=== PATIENT | male | born 1960 | race Caucasian/White ===

== ENCOUNTER → 2016-09-17 | Outpatient (CLI) | payer MEDICARE ==
[~2016-09-17] MED LIST: ALBU8I INH; ALBUAER3 INH; AMLO10 PO; ASPI1TAB69 PO; BUME1TAB28 PO; BUME2TAB PO; CARD180C5 PO; CART240C PO; CARV25TA PO; CEFD300C PO; CLIN1CAP5 PO; CLON.2 PO; CLON0.1T PO; DOXY100T PO; ECOT325T PO; EXEN5PEN SQ; KLOR20TA6 PO; LANTUS2P SQ; LANTUSP SQ; LORTA5 PO; LOSA100T PO; METF500 PO; METF500T PO; OMEP20TA PO; PERC5TAB12 PO; POTA10CA PO; RHINSUS; WARF-20 PO
[2016-09-17 16:12] LABS: AUTOMATED NEUTROPHIL # 8.2 TH/MM3 (1.8-7.7); BASOPHIL # 0.1 TH/MM3 (0-0.2); BASOPHIL % 0.8 % (0.0-2.0); EOSINOPHIL # 0.5 TH/MM3 (0-0.4); EOSINOPHIL % 4.1 % (0.0-4.0); HEMATOCRIT 32.2 % (39.0-51.0); HEMO FLAGS DIFF FINAL; LYMPH % 20.7 % (9.0-44.0); LYMPHOCYTE # 2.6 TH/MM3 (1.0-4.8); MEAN CELL VOLUME 84.1 FL (80.0-100.0); MEAN CORPUSCULAR HEMOGLOBIN 27.2 PG (27.0-34.0); MEAN CORPUSCULAR HGB CONC 32.3 % (32.0-36.0); NEUT % 66.4 % (16.0-70.0); PLATELET COUNT 299 TH/MM3 (150-450); RED BLOOD COUNT 3.83 MIL/MM3 (4.50-5.90); RED CELL DISTRIBUTION WIDTH 16.7 % (11.6-17.2); WHITE BLOOD COUNT 12.4 TH/MM3 (4.0-11.0)
[2016-09-17 16:29] LABS: ANION GAP 7 MEQ/L (5-15); BICARBONATE 26.3 MEQ/L (21.0-32.0); BLOOD UREA NITROGEN 24 MG/DL (7-18); CHLORIDE 106 MEQ/L (98-107); GLOMERULAR FILTRATION RATE 29 ML/MIN (>89); POTASSIUM 4.6 MEQ/L (3.5-5.1); SODIUM (NA) 139 MEQ/L (136-145); TRANSFERRIN IRON PROFILE 121 MG/DL (200-360)
== END ==
LOC: PLAB 11:53
PROVIDERS: ATTEND Family Medicine
DX: D50.9 Iron deficiency anemia, unspecified (principal); N18.4 Chronic kidney disease, stage 4 (severe)
CPT/HCPCS: 80048; 83540; 83550; 85025

== ENCOUNTER 2016-10-21 18:18 | Emergency (ER) | payer MEDICARE, OTHER ==
[~2016-10-21] VITALS: Ht 167.6 cm; Wt 154.0 kg
[~2016-10-21 18:18] MED LIST changes: -ALBUAER3 INH; -ASPI1TAB69 PO; -BUME1TAB28 PO; -CART240C PO; -CLIN1CAP5 PO; -CLON0.1T PO; -LANTUS2P SQ; -METF500T PO; -PERC5TAB12 PO; -POTA10CA PO
[2016-10-21 18:24] VITALS: BP 188/91; PULSE 80; RESP 16; TEMP 98.7; O2SAT 95
[2016-10-21] MEDS ORDERED: CART240C PO (19:25)
[2016-10-21] MEDS ORDERED: ASPI1TAB69 PO (19:25)
[2016-10-21] MEDS ORDERED: ALBUAER3 INH (19:25)
[2016-10-21] MEDS ORDERED: LOSA100T PO (19:25)
[2016-10-21] MEDS ORDERED: POTA10CA PO (19:25)
[2016-10-21] MEDS ORDERED: BUME1TAB28 PO (19:25)
[2016-10-21] MEDS ORDERED: METF500T PO (19:25)
[2016-10-21] MEDS ORDERED: OMEP20TA PO (19:25)
[2016-10-21] MEDS ORDERED: CARV25TA PO (19:25)
[2016-10-21] MEDS ORDERED: AMLO10 PO (19:25)
[2016-10-21] MEDS ORDERED: CLON0.1T PO (19:25)
[2016-10-21] MEDS ORDERED: LANTUS2P SQ (19:25)
--- NOTE | 2016-10-21 20:13 | PD ---
HPI Chief Complaint: Musculoskeletal Complaint Time Seen by Provider: 20:09 Travel History International Travel<30 days: No Contact w/Intl Traveler<30days: No Traveled to known affect area: No History of Present Illness HPI Patient is a 55-year-old male with a history of IDDM, hypertension, COPD and DVT presenting with left shoulder pain. It is mostly anterior. Present for 4 weeks. Denies trauma or injury. Pain is worse with movement, especially flexion and abduction. Over the last several days it is worsened and he is unable sleep on the affected side. Ibuprofen is not helping. He feels like the pain is radiating now into his upper arm area feels tight which he states is similar to when he had a DVT of the right upper extremity years prior. Currently on aspirin, no anticoagulants. He states that the pain does radiate into the pectoral muscle on the left. He denies shortness of breath, cough, wheezing, orthopnea, PABLO. Denies any pain in his neck. He denies any weakness or paresthesias. Patient adds that he has had some redness and discharge the pretibial surfaces bilaterally. He is had chronic cellulitis off and on. Currently present for 5-7 days. He denies pain or swelling. He denies fever and chills. PFSH Past Medical History Hx Anticoagulant Therapy: Yes (ASA) Arthritis: Yes Asthma: No Autoimmune Disease: No Blood Disorders: No Heart Rhythm Problems: No Cancer: No Cardiovascular Problems: Yes High Cholesterol: No Chest Pain: Yes Congestive Heart Failure: No COPD: Yes Cerebrovascular Accident: No Diabetes: Yes (INSULIN AND PILLS) Patient Takes Glucophage: Yes Diminished Hearing: No Endocrine: Yes Gastrointestinal Disorders: Yes GERD: Yes Genitourinary: Yes Headaches: Yes Hiatal Hernia: No Hypertension: Yes Immune Disorder: No Implanted Vascular Access Dvce: Yes Kidney Stones: Yes (WITH LITHOTRIPSY) Musculoskeletal: Yes Neurologic: Yes Psychiatric: No Reproductive: No Migraines: Yes Renal Failure: Yes (CRI) Seizures: No Sleep Apnea: No Thyroid Disease: No Ulcer: No Past Surgical History Abdominal Surgery: Yes (gall bladder ) AICD: No Arteriovenous Shunt: No Cardiac Surgery: No Cholecystectomy: Yes Ear Surgery: No Endocrine Surgery: No Eye Surgery: Yes (BILATERAL CATARACT REMOVAL WITH LENS IMPLANTS) Genitourinary Surgery: Yes (KIDNEY STONE REMOVAL, LITHOTRIPSY) Insulin Pump: No Joint Replacement: No Neurologic Surgery: No Oral Surgery: No Pacemaker: No Thoracic Surgery: No Other Surgery: Yes (COLONOSCOPY) Social History Alcohol Use: No Tobacco Use: No Substance Use: No Allergies-Medications (Allergen,Severity, Reaction): Coded Allergies: Hytrin (Verified Allergy, Severe, HIVES, 10/21/16) Lexapro (Verified Allergy, Severe, HIVES, 10/21/16) Lipitor (Verified Allergy, Severe, UNKNOWN, 10/21/16) Lisinopril (Verified Allergy, Severe, Rash, 10/21/16) Lovastatin (Verified Allergy, Severe, UNKNOWN, 10/21/16) Nitroglycerin (Verified Allergy, Severe, evere headache, 10/21/16) Penicillin (Verified Allergy, Severe, hives, 10/21/16) Pravachol (Verified Allergy, Severe, HIVES, CONFUSION, 10/21/16) Serzone (Verified Allergy, Severe, SHAIKH, 10/21/16) Vicodin (Verified Allergy, Severe, SHAIKH, 10/21/16) Wellbutrin (Verified Allergy, Severe, ABDOMINAL CRAMPS, 10/21/16) Levofloxacin (Verified Allergy, Unknown, Hallucinations, 10/21/16) Reported Meds & Prescriptions Reported Meds & Active Scripts Active Clindamycin (Clindamycin HCl) 150 Mg Cap 300 Mg PO Q6H 7 Days Percocet (Oxycodone-Acetaminophen) 5-325 mg Tab 1 Tab PO Q6H PRN Reported Aspirin 81 Mg Tabdr 81 Mg PO DAILY Potassium Chloride ER (Potassium Chloride) 10 Meq Cap 10 Meq PO DAILY Omeprazole 20 Mg Tab 20 Mg PO DAILY Metformin (Metformin HCl) 500 Mg Tab 500 Mg PO BIDPC With meals Lantus Inj (Insulin Glargine) 1,000 Unit/10 Ml Vial 40 Units SQ HS Losartan (Losartan Potassium) 100 Mg Tab 100 Mg PO DAILY Carvedilol 25 Mg Tab 25 Mg PO BID Clonidine (Clonidine HCl) 0.1 Mg Tab 0.1 Mg PO TID Cartia Xt (Diltiazem ER 24 HR) 240 Mg Caper 240 Mg PO DAILY Bumex (Bumetanide) 2 Mg Tab 2 Mg PO BID Norvasc (Amlodipine Besylate) 10 Mg Tab 10 Mg PO DAILY Proair Hfa 8.5 GM Inh (Albuterol Sulfate) 90 Mcg/Act Aer 1 Puff INH Q4H PRN 108 mcg/actuation Review of Systems Except as stated in HPI: all other systems reviewed are Neg Physical Exam Narrative GENERAL: Well-developed and well-nourished adult male in no acute distress. SKIN: Bilateral pretibial surfaces have significant scarring and chronic discoloration. There is a small amount of area of bilateral pretibial surface does appear cellulitic. No induration, fluctuance or streaking. Warm and dry. Good turgor without tenting. HEAD: Normocephalic and atraumatic. EYES: PERRL bilaterally, 5mm. EOMI bilaterally. No injection or icterus present. No proptosis. Lids without edema or erythema. NECK: Supple, no midline tenderness, crepitus or step-offs. Trachea midline, no JVD. No cervical or facial lymphadenopathy. CARDIOVASCULAR: Regular rate and rhythm without murmurs, rubs, clicks or gallops. Radial and dorsalis pedis pulses 2+ bilaterally. Trace bilateral pedal edema, chronic per patient. Bilateral Homans sign. RESPIRATORY: Clear to auscultation bilaterally with symmetrical rise and fall, no distress or use of accessory muscles. MUSCULOSKELETAL: Left shoulder is grossly unremarkable. GC tender to palpation , mostly anteriorly and laterally. No edema or discoloration. Pain is mostly in the left acromioclavicular region. Positive impingement test the left shoulder. As a pain with palpation of the left pectoral muscle and anterior left-sided chest wall. Pain with squeezing of the left upper arm which has no edema or discoloration suggestive of DVT. It does not appear larger than the right. Patient freely moving all four extremities spontaneously. Extremities without clubbing or cyanosis. No obvious deformities. NEUROLOGIC: CN II-XII grossly intact. Awake and alert. Strength 5/5 bilateral shoulder flexion, shoulder extension, shoulder abduction, elbow flexion and elbow extension. Bilateral biceps, triceps and brachial radialis DTRs 2+. Negative bilateral Abbott sign. Strength and sensation intact bilateral radial , median, and ulnar nerve distributions. Normal speech. PSYCHIATRIC: Appropriate mood and affect; insight and judgment normal. Data Data Last Documented VS Vital Signs Date Time Temp Pulse Resp B/P Pulse Ox O2 Delivery O2 Flow Rate FiO2 10/21/16 23:18 97 Room Air 10/21/16 23:18 20 10/21/16 18:24 98.7 80 188/91 Orders Shoulder, Complete (>2vws) (10/21/16 20:04) Us Arm Venous Doppler (10/21/16 ) Electrocardiogram (10/21/16 20:04) Ckmb (Isoenzyme) Profile (10/21/16 20:04) Complete Blood Count With Diff (10/21/16 20:04) Comprehensive Metabolic Panel (10/21/16 20:04) Prothrombin Time / Inr (Pt) (10/21/16 20:04) Act Partial Throm Time (Ptt) (10/21/16 20:04) Troponin I (10/21/16 20:04) Chest, Single Ap (10/21/16 20:04) Ecg Monitoring (10/21/16 20:04) Bilateral Bp Monitoring (10/21/16 20:04) Iv Access Insert/Monitor (10/21/16 20:04) Oximetry (10/21/16 20:04) Oxygen Administration (10/21/16 20:04) Sodium Chloride 0.9% Flush (Ns Flush) (10/21/16 20:15) Morphine Inj (Morphine Inj) (10/21/16 20:15) Ondansetron Inj (Zofran Inj) (10/21/16 20:15) Clindamycin Inj (Cleocin Inj) (10/21/16 21:30) D-Dimer (10/21/16 22:28) Morphine Inj (Morphine Inj) (10/21/16 22:30) Aspirin Chew (Aspirin Chew) (10/22/16 00:00) Labs Laboratory Tests Test 10/21/16 20:30 White Blood Count 12.5 TH/MM3 Red Blood Count 3.72 MIL/MM3 Hemoglobin 10.3 GM/DL Hematocrit 30.8 % Mean Corpuscular Volume 83.0 FL Mean Corpuscular Hemoglobin 27.8 PG Mean Corpuscular Hemoglobin 33.5 % Concent Red Cell Distribution Width 14.5 % Platelet Count 339 TH/MM3 Mean Platelet Volume 6.9 FL Neutrophils (%) (Auto) 75.4 % Lymphocytes (%) (Auto) 13.6 % Monocytes (%) (Auto) 8.2 % Eosinophils (%) (Auto) 2.2 % Basophils (%) (Auto) 0.6 % Neutrophils # (Auto) 9.4 TH/MM3 Lymphocytes # (Auto) 1.7 TH/MM3 Monocytes # (Auto) 1.0 TH/MM3 Eosinophils # (Auto) 0.3 TH/MM3 Basophils # (Auto) 0.1 TH/MM3 CBC Comment DIFF FINAL Differential Comment Prothrombin Time 10.2 SEC Prothromb Time International 0.9 RATIO Ratio Activated Partial 30.0 SEC Thromboplast Time D-Dimer Quantitative (PE/DVT) 0.91 MG/L FEU Sodium Level 140 MEQ/L Potassium Level 4.9 MEQ/L Chloride Level 105 MEQ/L Carbon Dioxide Level 24.7 MEQ/L Anion Gap 10 MEQ/L Blood Urea Nitrogen 22 MG/DL Creatinine 2.20 MG/DL Estimat Glomerular Filtration 31 ML/MIN Rate Random Glucose 112 MG/DL Calcium Level 8.1 MG/DL Total Bilirubin 0.2 MG/DL Aspartate Amino Transf 6 U/L (AST/SGOT) Alanine Aminotransferase 9 U/L (ALT/SGPT) Alkaline Phosphatase 65 U/L Total Creatine Kinase 81 U/L Troponin I LESS THAN 0.02 NG/ML Total Protein 7.6 GM/DL Albumin 3.2 GM/DL [facility] Medical Decision Making Medical Screen Exam Complete: Yes Emergency Medical Condition: Yes Differential Diagnosis Shoulder impingement syndrome versus subacromial bursitis versus tendinitis versus arthritis versus frozen shoulder versus ACS versus DVT versus cellulitis Narrative Course Patient is a 55-year-old male with history of insulin-dependent diabetes, hypertension, COPD and DVT presenting with left shoulder pain. No injury. Present for 4 weeks. This doesn't appear his orthopedic as he has pain with palpation, movement and evidence of shoulder impingement syndrome. He is neurovascularly intact. Some left pectoral and chest wall tenderness to palpation. He denies central chest pain or pressure and denies current pulmonary symptoms. He does seem to be concerned that he may have a DVT in the arm however as he had DVT in the right arm several years ago and reports that the aching he's not having in his upper arm on the left is similar to what occurred on the right. There is no sign of DVT on exam. He has minor bilateral pedal edema without tenderness which is chronic and slightly improved from usual he states. He is evidence of minimal cellulitis which we will treat with clindamycin. EKG shows sinus rhythm with rate of 74. Left axis deviation and Q waves in the inferior leads. This is all present on previous EKG. QTC is 472 ms which is new. Her shoulder x-ray, chest x-ray, venous Doppler of the left upper extremity and labs. Patient was given morphine for pain. Patient has a leukocytosis of 12.5 with neutrophilia, no bands. He has chronic anemia and renal insufficiency but no acute exacerbations. Troponin less than 0.02. Left upper extremity Doppler is negative for DVT. Left shoulder and chest x- ray unremarkable. Patient achieved very little analgesia with morphine initially. More was given and discussed the patient with Dr. Salazar who recommended a d-dimer and patient would likely be admitted to chest pain center if this is negative. Further workup is positive. Patient was signed out to her for further disposition. Diagnosis Primary Impression: Shoulder pain, left Qualified Code: M25.512 - Acute pain of left shoulder Additional Impression: Cellulitis Qualified Code: L03.119 - Cellulitis of lower extremity, unspecified laterality Scripts Clindamycin 150 Mg [id number] Mg PO Q6H 7 Days Ref 0 Prov:Mecca Salazar MD 10/22/16 Oxycodone-Acetaminophen (Percocet)5-325 mg Tab1 Tab PO Q6H PRN (PAIN) #12 TAB Ref 0 Prov:Mecca Salazar MD 10/22/16 Condition: Stable Senthil Allen III Oct 21, 2016 20:13
[2016-10-21] MEDS ORDERED: SODIUM CHLORIDE 0.9% FLUSH 5 ML FLUSH IVF PRN (20:15)
[2016-10-21] MEDS ORDERED: ONDANSETRON HCL 4 MG/2 ML VIAL IV PUSH ONE (20:15)
[2016-10-21] MEDS ORDERED: MORPHINE SULFATE 8 MG/ML INJ IV PUSH ONE (20:15)
[2016-10-21 21:07] LABS: AUTOMATED NEUTROPHIL # 9.4 TH/MM3 (1.8-7.7); BASOPHIL # 0.1 TH/MM3 (0-0.2); BASOPHIL % 0.6 % (0.0-2.0); EOSINOPHIL # 0.3 TH/MM3 (0-0.4); EOSINOPHIL % 2.2 % (0.0-4.0); HEMATOCRIT 30.8 % (39.0-51.0); HEMO FLAGS DIFF FINAL; LYMPH % 13.6 % (9.0-44.0); LYMPHOCYTE # 1.7 TH/MM3 (1.0-4.8); MEAN CORPUSCULAR HEMOGLOBIN 27.8 PG (27.0-34.0); MEAN CORPUSCULAR HGB CONC 33.5 % (32.0-36.0); MONO % 8.2 % (0.0-8.0); NEUT % 75.4 % (16.0-70.0); PLATELET COUNT 339 TH/MM3 (150-450); RED BLOOD COUNT 3.72 MIL/MM3 (4.50-5.90); RED CELL DISTRIBUTION WIDTH 14.5 % (11.6-17.2); WHITE BLOOD COUNT 12.5 TH/MM3 (4.0-11.0)
[2016-10-21 21:16] LABS: CHLORIDE 105 MEQ/L (98-107); POTASSIUM 4.9 MEQ/L (3.5-5.1); SODIUM (NA) 140 MEQ/L (136-145)
[2016-10-21 21:20] LABS: INTERNATIONAL NORMALIZED RATIO 0.9 RATIO; PROTHROMBIN TIME - PATIENT 10.2 SEC (9.8-11.6)
[2016-10-21 21:21] LABS: ANION GAP 10 MEQ/L (5-15); BICARBONATE 24.7 MEQ/L (21.0-32.0); BLOOD UREA NITROGEN 22 MG/DL (7-18)
[2016-10-21 21:24] LABS: ALT (GPT) 9 U/L (12-78); AST (GOT) 6 U/L (15-37); GLOMERULAR FILTRATION RATE 31 ML/MIN (>89)
[2016-10-21 21:26] LABS: TOTAL BILIRUBIN ADULT 0.2 MG/DL (0.2-1.0)
[2016-10-21 21:27] LABS: ALKALINE PHOSPHATASE 65 U/L (45-117)
[2016-10-21] MEDS ORDERED: CLINDAMYCIN INJ 600 MG in SODIUM CHLORIDE 0.9% INJ 100 ML IV ONE (21:30)
[2016-10-21 21:31] LABS: CREATINE KINASE 81 U/L (39-308)
--- NOTE | 2016-10-21 21:54 | RADHPO ---
EXAM DATE/TIME: 10/21/2016 20:37 [facility] COMPARISON: No previous studies available for comparison. INDICATIONS : Left arm edema and pain. MEDICAL HISTORY : Hypertension. Chronic obstructive pulmonary disease. Gastroesophageal reflux disease. Migraine. Emphy sema. Kidney stones. Diabetes. SURGICAL HISTORY : Cholecystectomy. Lens implants. Lithotripsy. Colonoscopy. ENCOUNTER: Initial ACUITY: 3 days PAIN SCORE: 5/10 LOCATION: Left arm. FINDINGS: There is spontaneous flow documented in the brachial, basilic, cephalic, axillary, and subclavian vei ns. The vessels are compressible and augmentation response is documented. No filling defects are se en. The flow is phasic with respiration. Direction of flow in the jugular vein is caudal. CONCLUSION: Normal examination. Cam Bedolla MD on October 21, 2016 at 21:51 Board Certified Radiologist. This report was verified electronically.
--- NOTE | 2016-10-21 22:14 | RADHPO ---
EXAM DATE/TIME: 10/21/2016 21:22 [facility] COMPARISON: No previous studies available for comparison. INDICATIONS : Chest discomfort. MEDICAL HISTORY : Hypertension. Gastroesophageal reflux disease. Chronic obstructive pulmonary disease. SURGICAL HISTORY : Cholecystectomy. ENCOUNTER: Initial ACUITY: 1 month PAIN SCORE: 7/10 LOCATION: Bilateral chest FINDINGS: A single view of the chest demonstrates the lungs to be symmetrically aerated without evidence of mas s, infiltrate or effusion. The cardiomediastinal contours are unremarkable. Osseous structures are intact. CONCLUSION: No acute disease. Cam Bedolla MD on October 21, 2016 at 22:12 Board Certified Radiologist. This report was verified electronically.
--- NOTE | 2016-10-21 22:16 | RADHPO ---
EXAM DATE/TIME: 10/21/2016 21:24 [facility] COMPARISON: No previous studies available for comparison. INDICATIONS : Left shoulder pain X 4 weeks / no recent injury. MEDICAL HISTORY : Hypertension. Gastroesophageal reflux disease. Diabetes mellitus type II. COPD, Emphysema SURGICAL HISTORY : Cholecystectomy. ENCOUNTER: Initial ACUITY: 1 month PAIN SCORE: 7/10 LOCATION: Left Shoulder FINDINGS: Multiple view examination of the left shoulder demonstrates no evidence of fracture or dislocation. The glenohumeral and acromioclavicular joints are maintained. There is normal range of motion betwee n internal and external rotation. Bony mineralization is normal. CONCLUSION: Normal examination for a patient of this age. Cam Bedolla MD on October 21, 2016 at 22:13 Board Certified Radiologist. This report was verified electronically.
[2016-10-21] MEDS ORDERED: MORPHINE SULFATE 4 MG/ML INJ IV PUSH ONE (22:30)
--- NOTE | 2016-10-21 23:13 | PD ---
Physical Exam Date Seen by Provider: Oct 21, 2016 Time Seen by Provider: 23:12 Narrative accepted in transfer of care GENERAL: Well-developed well-nourished morbidly obese male in no acute distress no respiratory distress SKIN: Warm and dry. HEAD: Normocephalic. EYES: No scleral icterus. No injection or drainage. NECK: Supple, trachea midline. No JVD or lymphadenopathy. CARDIOVASCULAR: Regular rate and rhythm without murmurs, gallops, or rubs. RESPIRATORY: Breath sounds equal bilaterally. No accessory muscle use. GASTROINTESTINAL: Abdomen soft, non-tender, nondistended. MUSCULOSKELETAL: No cyanosis, left lower extremity erythema edema increased warmth or cellulitic changes noted to the anterior lopez. BACK: Nontender without obvious deformity. No CVA tenderness. Data Data Last Documented VS Vital Signs Date Time Temp Pulse Resp B/P Pulse Ox O2 Delivery O2 Flow Rate FiO2 10/21/16 23:18 97 Room Air 10/21/16 23:18 20 10/21/16 18:24 98.7 80 188/91 Orders Shoulder, Complete (>2vws) (10/21/16 20:04) Us Arm Venous Doppler (10/21/16 ) Electrocardiogram (10/21/16 20:04) Ckmb (Isoenzyme) Profile (10/21/16 20:04) Complete Blood Count With Diff (10/21/16 20:04) Comprehensive Metabolic Panel (10/21/16 20:04) Prothrombin Time / Inr (Pt) (10/21/16 20:04) Act Partial Throm Time (Ptt) (10/21/16 20:04) Troponin I (10/21/16 20:04) Chest, Single Ap (10/21/16 20:04) Ecg Monitoring (10/21/16 20:04) Bilateral Bp Monitoring (10/21/16 20:04) Iv Access Insert/Monitor (10/21/16 20:04) Oximetry (10/21/16 20:04) Oxygen Administration (10/21/16 20:04) Sodium Chloride 0.9% Flush (Ns Flush) (10/21/16 20:15) Morphine Inj (Morphine Inj) (10/21/16 20:15) Ondansetron Inj (Zofran Inj) (10/21/16 20:15) Clindamycin Inj (Cleocin Inj) (10/21/16 21:30) D-Dimer (10/21/16 22:28) Morphine Inj (Morphine Inj) (10/21/16 22:30) Aspirin Chew (Aspirin Chew) (10/22/16 00:00) Labs Laboratory Tests Test 10/21/16 20:30 White Blood Count 12.5 TH/MM3 Red Blood Count 3.72 MIL/MM3 Hemoglobin 10.3 GM/DL Hematocrit 30.8 % Mean Corpuscular Volume 83.0 FL Mean Corpuscular Hemoglobin 27.8 PG Mean Corpuscular Hemoglobin 33.5 % Concent Red Cell Distribution Width 14.5 % Platelet Count 339 TH/MM3 Mean Platelet Volume 6.9 FL Neutrophils (%) (Auto) 75.4 % Lymphocytes (%) (Auto) 13.6 % Monocytes (%) (Auto) 8.2 % Eosinophils (%) (Auto) 2.2 % Basophils (%) (Auto) 0.6 % Neutrophils # (Auto) 9.4 TH/MM3 Lymphocytes # (Auto) 1.7 TH/MM3 Monocytes # (Auto) 1.0 TH/MM3 Eosinophils # (Auto) 0.3 TH/MM3 Basophils # (Auto) 0.1 TH/MM3 CBC Comment DIFF FINAL Differential Comment Prothrombin Time 10.2 SEC Prothromb Time International 0.9 RATIO Ratio Activated Partial 30.0 SEC Thromboplast Time D-Dimer Quantitative (PE/DVT) 0.91 MG/L FEU Sodium Level 140 MEQ/L Potassium Level 4.9 MEQ/L Chloride Level 105 MEQ/L Carbon Dioxide Level 24.7 MEQ/L Anion Gap 10 MEQ/L Blood Urea Nitrogen 22 MG/DL Creatinine 2.20 MG/DL Estimat Glomerular Filtration 31 ML/MIN Rate Random Glucose 112 MG/DL Calcium Level 8.1 MG/DL Total Bilirubin 0.2 MG/DL Aspartate Amino Transf 6 U/L (AST/SGOT) Alanine Aminotransferase 9 U/L (ALT/SGPT) Alkaline Phosphatase 65 U/L Total Creatine Kinase 81 U/L Troponin I LESS THAN 0.02 NG/ML Total Protein 7.6 GM/DL Albumin 3.2 GM/DL [facility] Medical Record Reviewed: Yes Supervised Visit with ARIN: Yes (patient was interviewed and examined by me findings consistent with musculoskeletal pain recurrent cellulitis and atypical chest pain/reproducible chest wall pain; concur with diagnostics and assessment while seen in conjunction with DANNIE) Interpretation(s) Last Impressions Shoulder X-Ray 10/21/162003 Signed Impressions: Service Date/Time: Friday, October 21, 2016 21:24 - CONCLUSION: Normal examination for a patient of this age. Cam Bedolla MD Chest X-Ray 10/21/162003 Signed Impressions: Service Date/Time: Friday, October 21, 2016 21:22 - CONCLUSION: No acute disease. Cam Bedolla MD Upper Extremity Ultrasound 10/21/16 Signed Impressions: Service Date/Time: Friday, October 21, 2016 20:37 - CONCLUSION: Normal examination. Cam Bedolla MD CBC & BMP Diagram 10/21/16 20:30 Troponin I less than 0.02 Vital Signs Date Time Temp Pulse Resp B/P Pulse Ox O2 Delivery O2 Flow Rate FiO2 10/21/16 23:18 97 Room Air 10/21/16 23:18 20 97 Room Air 10/21/16 23:17 18 10/21/16 21:14 18 10/21/16 18:24 98.7 80 16 188/91 95 Differential Diagnosis accepted in transfer of care Narrative Course accepted in transfer of care --labs pendnig-- consider KINESIOLOGY PROFESSOR obs Patient with multiple chronic medical conditions including hypertension dyslipidemia and diabetes with remote history of PICC line induced DVT with no history of ongoing underlying coagulopathy presents with range of motion left shoulder pain concerning for impingement versus frozen shoulder was referred pain to the anterior chest wall without true chest pain shortness of breath sweats nausea vomiting or referred neck jaw back shoulder arm pain. Patient has close relationship with primary care provider who knows him well states that he frequently has issues with arthritic pain also has recurrent cellulitis does not feel patient requires observation admission at this time will arrange for him to be seen by his residential pest control technician will arrange for wound care for his cellulitis and will follow up on his possible shoulder impingement syndrome. Patient offered observation admission does not want to stay would not be asked to sign against medical advise due to close follow-up with primary care provider availability to be seen times one day. Patient with extensive conversation regarding things to monitor and return to the emergency department for any concerns. Patient was spouse at bedside aware of recommendations questions answered to their satisfaction VQ scan canceled as nonspecific elevation of d-dimer of 0.91 other multifactorial etiology and patient is not experiencing any pleuritic chest pain at this time no shortness of breath at this time room air O2 saturation's 95-97% and no evidence of upper extremity DVT at this time with negative ultrasound. Patient unwilling to stay for VQ scan. Primary care provider aware of vital signs EKG cardiac enzymes lab results physical exam and mild elevation of d-dimer will follow up these values as an outpatient. Physician Communication Physician Communication case discussed in detail with patient's doctor--knows patient well w request for outpatitne close follow up and management Diagnosis Primary Impression: Shoulder pain, left Qualified Code: M25.512 - Acute pain of left shoulder Additional Impressions: Cellulitis of left leg without foot Diabetic leg ulcer Chronic kidney disease Referrals: Patty Owens MD 1 day Patient Instructions: Narcotic given in the ED, General Instructions Additional Instruction: Continue current medications as presently prescribed Follow-up with your primary care provider times one day Complete antibiotic as prescribed Take pain medication as prescribed as needed Return immediately to the emergency department for any concerns or change in condition Take acetaminophen/Tylenol every 4 hours as needed for fever 100.4F or greater Med/Other Pt SpecificInfo: Prescription(s) given Scripts Clindamycin 150 Mg [id number] Mg PO Q6H 7 Days Ref 0 Prov:Mecca Salazar MD 10/22/16 Oxycodone-Acetaminophen (Percocet)5-325 mg Tab1 Tab PO Q6H PRN (PAIN) #12 TAB Ref 0 Prov:Mecca Salazar MD 10/22/16 Disposition: 01 DISCHARGE HOME Condition: Stable Mecca Salazar MD Oct 21, 2016 23:13
[2016-10-21 23:18] VITALS: RESP 20; O2SAT 97
[2016-10-22] MEDS ORDERED: ASPIRIN 81 MG CHEW TAB CHEW ONE
[2016-10-22] MEDS ORDERED: CLIN1CAP5 PO (00:43)
[2016-10-22] MEDS ORDERED: PERC5TAB12 PO (00:43)
--- NOTE | 2016-10-22 11:18 | EKG ---
Date Performed: 10/21/2016 Time Performed: 20:22:02 PTAGE: 55 years EKG: Normal Sinus rhythm Prolonged QT interval Left axis deviation Possible inferior infarct - age undetermined Since previou s tracing, no significant change noted Abnormal ECG PREVIOUS TRACING : 10/18/2015 21.12 DOCTOR: Jean Mchugh Interpretating Date/Time 10/22/2016 11:17:56
== END 2016-10-22 01:07 | disposition home or self-care (01) ==
LOC: PHED 18:18 → PHEFT 10-22 01:07
DX: M25.512 Pain in left shoulder (principal); L03.119 Cellulitis of unspecified part of limb; R94.31 Abnormal electrocardiogram [ECG] [EKG]; M79.602 Pain in left arm; J44.9 Chronic obstructive pulmonary disease, unspecified; I10 Essential (primary) hypertension; N18.9 Chronic kidney disease, unspecified; E11.22 Type 2 diabetes mellitus with diabetic chronic kidney disease; Z79.82 Long term (current) use of aspirin; Z86.718 Personal history of other venous thrombosis and embolism
CPT/HCPCS: 71010; 73030; 80053; 82550; 84484; 85025; 85379; 85610; 85730; 93005; 93971; 96365; 96375; 96376; 99284; J2270; J2405

== ENCOUNTER → 2016-11-14 | Outpatient (CLI) | payer MEDICARE, OTHER ==
[~2016-11-14] MED LIST changes: -ALBU8I INH; +ALBUAER3 INH; +ASPI1TAB69 PO; +BUME1TAB28 PO; -BUME2TAB PO; -CARD180C5 PO; +CART240C PO; -CEFD300C PO; +CLIN1CAP5 PO; -CLON.2 PO; +CLON0.1T PO; -DOXY100T PO; -ECOT325T PO; -EXEN5PEN SQ; -KLOR20TA6 PO; +LANTUS2P SQ; -LANTUSP SQ; -LORTA5 PO; -METF500 PO; +METF500T PO; +PERC5TAB12 PO; +POTA10CA PO; -RHINSUS; -WARF-20 PO
[2016-11-14 12:57] LABS: BASOPHIL # 0.1 TH/MM3 (0-0.2); BASOPHIL % 1.2 % (0.0-2.0); EOSINOPHIL # 0.4 TH/MM3 (0-0.4); EOSINOPHIL % 3.5 % (0.0-4.0); HEMATOCRIT 32.8 % (39.0-51.0); HEMO FLAGS DIFF FINAL; LYMPH % 27.9 % (9.0-44.0); LYMPHOCYTE # 2.9 TH/MM3 (1.0-4.8); MEAN CELL VOLUME 84.7 FL (80.0-100.0); MEAN CORPUSCULAR HEMOGLOBIN 27.8 PG (27.0-34.0); MEAN CORPUSCULAR HGB CONC 32.8 % (32.0-36.0); MONO % 9.4 % (0.0-8.0); PLATELET COUNT 268 TH/MM3 (150-450); RED BLOOD COUNT 3.87 MIL/MM3 (4.50-5.90); RED CELL DISTRIBUTION WIDTH 16.1 % (11.6-17.2); WHITE BLOOD COUNT 10.4 TH/MM3 (4.0-11.0)
[2016-11-14 13:29] LABS: ALKALINE PHOSPHATASE 58 U/L (45-117); ALT (GPT) 16 U/L (12-78); ANION GAP 8 MEQ/L (5-15); AST (GOT) 9 U/L (15-37); BICARBONATE 27.3 MEQ/L (21.0-32.0); BLOOD UREA NITROGEN 23 MG/DL (7-18); CHLORIDE 104 MEQ/L (98-107); GLOMERULAR FILTRATION RATE 27 ML/MIN (>89); GLUCOSE,FASTING 98 MG/DL (74-99); POTASSIUM 4.2 MEQ/L (3.5-5.1); SODIUM (NA) 139 MEQ/L (136-145); TOTAL BILIRUBIN ADULT 0.4 MG/DL (0.2-1.0)
[2016-11-14 13:50] LABS: HDL CHOLESTEROL 41.2 MG/DL (40.0-60.0)
[2016-11-14 16:13] LABS: HEMOGLOBIN A1a 1.2 %; HEMOGLOBIN A1b 2.2 %; HEMOGLOBIN Ao 83.3 %; HEMOGLOBIN LA1C 2.1 %; HEMOGLOBIN P3 5.7 %
== END ==
LOC: PLAB 09:52
PROVIDERS: ATTEND Family Medicine
DX: R68.89 Other general symptoms and signs (principal); N18.4 Chronic kidney disease, stage 4 (severe); E11.22 Type 2 diabetes mellitus with diabetic chronic kidney disease; E11.40 Type 2 diabetes mellitus with diabetic neuropathy, unspecified; D63.1 Anemia in chronic kidney disease; D50.9 Iron deficiency anemia, unspecified; Z68.43 Body mass index [BMI] 50.0-59.9, adult
CPT/HCPCS: 36415; 80053; 80061; 82043; 82607; 82746; 83036; 84443; 85025